=== PATIENT | female | born 1995 | race Caucasian/White ===

== ENCOUNTER 2021-11-03 00:29 | Emergency (ER) | payer OTHER, MEDICARE ==
[2021-11-03] MEDS ORDERED: Boostrix 0.5 ML (Tdap) VIAL ONE (00:45)
== END 2021-11-03 00:49 | disposition home or self-care (01) ==
LOC: BURERS 00:29
DX: S61.211A Laceration without foreign body of left index finger without damage to nail, initial encounter (principal); W26.0XXA Contact with knife, initial encounter; Y93.G9 Activity, other involving cooking and grilling; Z23 Encounter for immunization
CPT/HCPCS: 12001; 90471; 90715